=== PATIENT | male | born 1950 | race African-American/Black ===

== ENCOUNTER → 2017-07-11 | Outpatient (CLI) | payer OTHER ==
[~2017-07-11] MED LIST: CONTRAST GIVEN MC
[2017-07-11] MEDS: IOHEXOL 240 MG/ML 50ML VIAL. PO (10:52)
[2017-07-11] MEDS: IOHEXOL 300 MG/ML 100ML VIAL. IV (10:52)
[2017-07-11 10:57] LABS: ISTAT CREATININE 0.6 mg/dL (0.7-1.3)
== END | disposition home or self-care (01) ==
LOC: KCIC CT 09:27
DX: K92.1 Melena (principal); N40.0 Benign prostatic hyperplasia without lower urinary tract symptoms
CPT/HCPCS: 74177; 82565; Q9966; Q9967

== ENCOUNTER → 2017-08-01 | Outpatient (CLI) | payer OTHER, MEDICARE ==
[2017-08-01] MEDS: SINCALIDE 1.31 MCG in IV NORMAL SALINE 50ML 30 ML IV (11:32)
== END | disposition home or self-care (01) ==
LOC: NM 08:55
DX: R10.11 Right upper quadrant pain (principal)
CPT/HCPCS: 78226; 96374; 96375; A9537; J2805

== ENCOUNTER → 2018-04-23 | Outpatient (CLI) | payer MEDICARE ==
[~2018-04-23] MED LIST changes: -CONTRAST GIVEN MC; +OMEP20CA9 PO
--- NOTE | 2018-04-23 14:23 | KCIC ---
MR of the left hip Indication: Left hip pain laterally for 6 months.. Technique: Standard multiplanar sequences are obtained. FINDINGS: Artifact: No significant image degradation. Bones: No bone lesion, acute fracture or acute bone marrow edema. No femoral head osteonecrosis. Effusion: No significant effusion Joint: No advanced primary osteoarthritis. Labrum: No evidence of labral tear or para labral cyst Gluteus minimus tendon: Intact Gluteus medius tendon: Intact Hamstring tendon: Intact Iliopsoas tendon: Intact Rectus femoris tendon attachment:Intact Soft tissue:No significant acute findings. Coronal STIR survey sequence inclusive of the contralateral hip demonstrates no acute findings at the contralateral hip. IMPRESSION: No acute findings or significant abnormality. Electronically signed by: Hiro Srinivasan MD (04/23/2018 2:20 PM) [facility]
== END | disposition home or self-care (01) ==
LOC: KCIC MRI 10:35
PROVIDERS: ATTEND Nurse Practitioner
DX: M25.552 Pain in left hip (principal)
CPT/HCPCS: 73721

== ENCOUNTER → 2020-11-23 | Outpatient (CLI) | payer MEDICARE, OTHER ==
[~2020-11-23] MED LIST changes: +OMEP20CA16 PO; -OMEP20CA9 PO
--- NOTE | 2020-11-23 16:13 | KCIC ---
CT HEAD INDICATION: Dizziness, giddiness COMPARISON: None Available. Exposure: One or more of the following individualized dose reduction techniques were utilized for thi s examination: 1. Automated exposure control 2. Adjustment of the mA and/or kV according to patient size 3. Use of iterative reconstruction technique TECHNIQUE: 5 mm contiguous axial images were obtained from the skull base to the vertex in both bone and soft tissue algorithm. FINDINGS: No abnormal attenuation within the brain parenchyma. No evidence of acute intracranial hemorrhage. No extra-axial fluid collections. No mass effect or midline shift. Ventricular size is appropriate. Basal cisterns are patent. No fractures identified.Alva-white differentiation is preserved.Globes and orbits are within normal l imits. Paranasal sinuses and mastoid air cells are clear. IMPRESSION: No acute intracranial findings. Electronically signed by: Alvaro Centeno MD (11/23/2020 4:11 PM) [id number]
== END ==
LOC: KCIC CT 13:15
PROVIDERS: ATTEND Nurse Practitioner
DX: R42 Dizziness and giddiness (principal)
CPT/HCPCS: 70450